=== PATIENT | male | born 1970 | race Two or more races ===

== ENCOUNTER 2024-08-09 14:14 | Inpatient (IN) | payer OTHER ==
[~2024-08-09] VITALS: Ht 167.6 cm; Wt 83.5 kg
--- NOTE | 2024-08-09 14:26 | ED.PDOC ---
HPI Comments This is a 54 year old male presenting to the ED with chief complaint of chest pain. Patient reports that he has been experiencing left sided chest pain since waking up on Tuesday morning, radiating to his neck and back. Patient relays that deep inspirations worsen his pain. Patient states he visited [facility] this afternoon and had labs and an EKG performed, being told that his Troponin is 102. Patient notes he signed out AMA when they advised to call an ambulance for him, stating that he would rather drive himself to the ED. Patient denies any SOB, dizziness, headache, N/V, abdominal pain, numbness, weakness, or syncope. Time Seen by MD: 14:24 Reviewed Notes: Nurses Notes, Medications, Allergies Allergies: Coded Allergies: NO KNOWN ALLERGIES (Unverified , 08/09/24) Information Source: Patient Mode of Arrival: Ambulatory Severity: Moderate Timing: Days Duration: Since onset Prehospital treatment: 12 Lead EKG Location: Chest (L) Radiation: Back, Neck Quality: Aching Onset: At Rest Cardiac Risk Factors: None PE Risk Factors: None Past Medical History PAST MEDICAL HISTORY: Denies Surgical History: Denies all surgeries Family History Family History: Reviewed,noncontributory to illness Social History Smoker: Non-Smoker Alcohol: Denies ETOH Use Drugs: Denies Drug Use Lives In: Home Constitutional: denies: chills, diaphoresis, fatigue, fever, malaise, sweats, weakness, others EENTM: denies: blurred vision, double vision, ear bleeding, ear discharge, ear drainage, ear pain, ear ringing, eye pain, eye redness, hearing loss, mouth pain, mouth swelling, nasal discharge, nose bleeding, nose congestion, nose pain, photophobia, tearing, throat pain, throat swelling, voice changes, others Respiratory: denies: cough, hemoptysis, orthopnea, SOB at rest, shortness of breath, SOB with excertion, stridor, wheezing, others Cardiovascular: denies: chest pain, dizzy spells, diaphoresis, Dyspnea on ex ertion, edema, irregular heart beat, left arm pain, lightheadedness, palpitations, PND, syncope, others Gastrointestinal: denies: abdomen distended, abdominal pain, blood streaked bowels, constipated, diarrhea, dysphagia, difficulty swallowing, hematemesis, melena, nausea, poor appetite, poor fluid intake, rectal bleeding, rectal pain, vomiting, others Genitourinary: denies: burning, dysuria, flank pain, frequency, hematuria, incontinence, penile discharge, penile sore, pain, testicle pain, testicle swelling, urgency, others Neurological: denies: dizziness, fainting, headache, left sided numbness, left sided weakness, numbness, paresthesia, pre-existing deficit, right sided numbness, right sided weakness, seizure, speech problems, tingling, tremors, weakness, others Musculoskeletal: denies: back pain, gout, joint pain, joint swelling, muscle pain, muscle stiffness, neck pain, others Integumetry: denies: bruises, change in color, change in hair/nails, dryness, laceration, lesions, lumps, rash, wounds, others Allergic/Immunocompromised: denies: Difficulty Healing, Frequent Infections, Hives, Itching, others Hematologic/Lymphatic: denies: anemia, blood clots, easy bleeding, easy bruising, swollen glands, others Endocrine: denies: excessive hunger, excessive sweating, excessive thirst, excessive urination, flushing, intolerance to cold, intolerance to heat, unexplained weight gain, unexplained weight loss, others Psychiatric: denies: anxiety, bipolar disorder, depression, hopeless, panic disorder, schizophrenia, sleepless, suicidal, others All Other Systems: Reviewed and Negative Physical Exam General Appearance: No Apparent Distress, Normal HEENT: Normal ENT Inspection, Pharynx Normal, TMs Normal Neck: Full Range of Motion, Non-Tender, Normal, Normal Inspection Respiratory: Chest Non-Tender, Lungs Clear, No Accessory Muscle Use, No Respiratory Distress, Normal Breath Sounds Cardiovascular: No Edema, No JVD, No Murmur, No Gallop, Normal Peripheral Pulses, Regular Rate/Rhythm Breast Exam: Deferred Gastrointestinal: No Organomegaly, Non Tender, No Pulsatile Mass, Normal Bowel Sounds, Soft Genitalia: Deferred Pelvic: Deferred Rectal: Deferred Extremities: No calf tenderness, Normal capillary refill, Normal inspection, Normal range of motion, Non-tender, No pedal edema Musculoskeletal : Apperance: Normal Neurologic: Alert, brusher and shearer II-XII nml as Tested, No Motor Deficits, Normal Affect, Normal Mood, No Sensory Deficits Cerebellar Function: Normal Reflexes: Normal Skin: Dry, Normal Color, Warm Lymphatic: No Adenopathy EKG EKG : Pulse Rate (adult): 94 Gunlock: Normal Cardiac Rhythm: NSR Block: None Hypertrophy: None ST: Normal Was a procedure done? Was a procedure done?: No CP Differential Dx Differential Diagnosis: N/A Differential Diagnosis: N/A Differential Diagnosis: Angina, Aortic dissection, Chest Wall Pain, Cholelithiasis, Costochondritis, Esophageal reflux/spasm, Gastritis, Myocardial Infarction, Pericarditis, Pneumonia, Pneumothorax, Pulmonary Embolus X-Ray, Labs, Meds, VS Vital Signs Date Time Temp Pulse Resp B/P (MAP) Pulse Ox O2 Delivery O2 Flow Rate FiO2 08/09/24 15:19 90 08/09/24 14:42 100.3 96 17 137/87 (104) 96 100.3 08/09/24 14:34 84 20 98 Room Air* 0 21 08/09/24 14:26 94 08/09/24 14:19 94 Lab Test 08/09/24 15:21 08/09/24 14:38 Range/Units Troponin I High Sensitivity 111 *H 109 *H </=54 ng/L White Blood Count 7.5 4.4-10.8 10^3/uL Red Blood Count 5.19 4.5-5.90 10^6/uL Hemoglobin 15.3 13.5-17.5 g/dL Hematocrit 44.7 41.0-53.0 % Mean Corpuscular Volume 86.2 80.0-100.0 fL Mean Corpuscular Hemoglobin 29.5 28.0-32.0 pg Mean Corpuscular Hemoglobin Concent 34.2 32.0-36.0 g/dL Red Cell Distribution Width 13.1 11.8-14.3 % Platelet Count 221 140-450 10^3/uL Mean Platelet Volume 7.7 6.9-10.8 fL Neutrophils (%) (Auto) 69.4 37.0-80.0 % Lymphocytes (%) (Auto) 17.7 10.0-50.0 % Monocytes (%) (Auto) 12.0 0.0-12.0 % Eosinophils (%) (Auto) 0.6 0.0-7.0 % Basophils (%) (Auto) 0.3 0.0-2.0 % Neutrophils # (Auto) 5.2 1.6-8.6 10 ^3/uL Lymphocytes # (Auto) 1.3 0.4-5.4 10 ^3/uL Monocytes # (Auto) 0.9 0-1.3 10 ^3/uL Eosinophils # (Auto) 0 0-0.8 10 ^3/uL Basophils # (Auto) 0 0-0.2 10 ^3/uL Nucleated Red Blood Cells 0.1 % Sodium Level 135 L 136-145 mmol/L Potassium Level 3.9 3.5-5.1 mmol/L Chloride Level 100 98-107 mmol/L Carbon Dioxide Level 27 20-31 mmol/L Anion Gap 8 5-15 Blood Urea Nitrogen 17 9-23 mg/dL Creatinine 0.81 0.700-1.30 mg/dL Glomerular Filtration Rate Calc 106 >90 mL/min BUN/Creatinine Ratio 21.0 H 10.0-20.0 Serum Glucose 105 74-106 mg/dL Calcium Level 9.3 8.7-10.4 mg/dL Current Medications Medications (Trade) Dose Ordered Sig/Shemar Route Start Time Stop Time Status Last Admin Aspirin 325 mg ONCE ONCE PO 08/09/24 14:30 08/09/24 14:31 DC 08/09/24 14:33 Chest XR: FINDINGS: Lines and Tubes: None Lungs: No focal consolidation. Pleura: No effusion. No pneumothorax. Cardiomediastinal contours: Unremarkable Bones: No acute osseous abnormality. IMPRESSION: No acute cardiopulmonary disease. Images Reviewed?: Images reviewed and evaluated by me Time of 1ST Reevaluation: 15:23 Reevaluation 1ST: Unchanged Time of 2ND Reevaluation: 15:47 Reevaluation 2ND: Improved Patient Education/Counseling: Diagnosis, Treatment, Prognosis, Need For Follow Up Family Education/Counseling: No Family Present Comments pt has angina. he does not have PE risk factors nor hardy any findings tro suggest aortic dissection. he has NSTEMI, and is unstable to be transferred. we will contact [place] for authorization for admission Dr Barrientos authorized admission here #[id number] Additional Information Reviewed patient's previous visit(s): None The following tests were ordered, and results were reviewed by me: Chest XR, CBC, BMP, Troponin, EKG Additional information was gathered from interviewing the following independent historian: None I reviewed and agreed with the following test results read by other provider: Chest XR I discussed treatments and results with medical personnel and: Patient Comprehensive systems review obtained and negative except for what is stated in the HPI. SEPSIS Sepsis Screen Physician Orders Continuous Ekg Monitoring 08,12,16,20,00,04 (08/09/24 14:24) Electrocardigram (08/09/24 14:24) Chest Portable (08/09/24 14:24) Troponin-I Hs (08/09/24 17:24) Electrocardigram (08/09/24 15:24) Electrocardigram (08/09/24 17:24) Vital Signs Date Time Temp Pulse Resp B/P (MAP) Pulse Ox O2 Delivery O2 Flow Rate FiO2 08/09/24 15:19 90 08/09/24 14:42 100.3 96 17 137/87 (104) 96 100.3 08/09/24 14:34 84 20 98 Room Air* 0 21 08/09/24 14:26 94 08/09/24 14:19 94 Laboratory Tests Test 08/09/24 14:38 White Blood Count 7.5 10^3/uL (4.4-10.8) Medications Medications Dose Ordered Sig/Shemar Route Start Time Stop Time Status Last Admin Dose Admin Aspirin 325 mg ONCE ONCE PO 08/09/24 14:30 08/09/24 14:31 DC 08/09/24 14:33 Departure 1 Departure Time of Disposition: 15:48 Impression: Primary Impression: NSTEMI (non-ST elevated myocardial infarction) Disposition: 09 ADMITTED INPATIENT Admit to: ICU Condition: Serious Discharged With: Self Critical Care Note Critical Care Time?: Yes (55 min-critical care time only) Critical care comment: due to concerns for patient's condition deteriorating, the care required my highest level of attention and readiness to intervene. i assessed the patient's condition, ordered the proper tests and treatments, reassessed for response and reviewed the results. i communicated with medical personnel and formulated a plan of care. total critical care time does not include any procedures Stability Stability form required: No Heart Score Heart Score: Heart Score Response (Comments) Value History Highly Suspicious 2 EKG Normal 0 Age >65 2 Risk Factors 1 or 2 risk factors 1 Troponin >3 x's Normal limit 2 Total 7 I personally scribed for KATHY LEE MD ([email or web address]) on 08/09/24 at 14:26. Electronically submitted by Steven Diaz ([email or web address]). I personally scribed for KATHY LEE MD ([email or web address]) on 08/09/24 at 15:39. Electronically submitted by Steven Diaz ([email or web address]). I personally scribed for [facility]EE [email or web address] on 08/09/24 at 15:52. Electronically submitted by Steven Diaz ([email or web address]). KATHY LEE MD Aug 09, 2024 14:26
[2024-08-09 14:34] VITALS: PULSE 84; RESP 20; O2SAT 98
--- NOTE | 2024-08-09 14:57 | DVH ---
EXAM: XY CHEST PORTABLE Indication: cp Technique: Single frontal view of the chest was obtained Comparison: None FINDINGS: Lines and Tubes: None Lungs: No focal consolidation. Pleura: No effusion. No pneumothorax. Cardiomediastinal contours: Unremarkable Bones: No acute osseous abnormality. IMPRESSION: No acute cardiopulmonary disease.
[2024-08-09 15:03] LABS: Hematocrit 44.7 % (41.0-53.0); Hemoglobin 15.3 g/dL (13.5-17.5); Mean Corpuscular Hemoglobin 29.5 pg (28.0-32.0); Mean Corpuscular Volume 86.2 fL (80.0-100.0); Nucleated Red Blood Cells % 0.1 %
[2024-08-09 15:13] LABS: Chloride 100 mmol/L (98-107); Potassium 3.9 mmol/L (3.5-5.1)
[2024-08-09 15:14] LABS: Anion Gap 8 (5-15); Calcium 9.3 mg/dL (8.7-10.4); Carbon Dioxide 27 mmol/L (20-31)
[2024-08-09 15:19] LABS: BUN/Creatinine Ratio 21.0 (10.0-20.0); Blood Urea Nitrogen 17 mg/dL (9-23); Glucose 105 mg/dL (74-106)
[2024-08-09 15:24] LABS: Sodium 135 mmol/L (136-145)
[2024-08-09] MEDS ORDERED: HEPARIN SODIUM (PORCINE) 5000 UNITS/ML 1ML VIAL IV ONE ×2 (16:00→16:30)
[2024-08-09] MEDS ORDERED: HEPARIN DRIP/D5W 100UNITS/ML 250 ML IV SCH (16:15)
[2024-08-09 16:22] VITALS: PULSE 80; RESP 12; O2SAT 96
[2024-08-09] MEDS ORDERED: ONDANSETRON HCL 4 MG/2 ML VIAL IV PRN (16:30)
[2024-08-09] MEDS ORDERED: NITROGLYCERIN 0.4 MG SL TAB SL PRN (16:30)
[2024-08-09] MEDS ORDERED: MORPHINE SULFATE INJ 2 MG/ml SYRG IV PRN (16:30)
[2024-08-09 16:47] LABS: INR 1.07 (0.9-1.15); Partial Thromboplastin Time 28.4 SEC (24.5-34.5); Prothrombin Time 11.3 sec (9.3-11.8)
--- NOTE | 2024-08-09 17:10 | CONS ---
Pharmacy Clinical Information: BOLUS 4000 UNITS HEPARIN IV, THEN INITIATE HEPARIN DRIP AT RATE 1000 UNITS/HR (ACS PROTOCOL WITH PATIENT WEIGHT 83.5KG) APTT DRAW SCHEDULED FOR 2300 PER RX PROTOCOL SALMA BOTELLO PHARMACIST Aug 09, 2024 17:10
[2024-08-09] MEDS: ACETAMINOPHEN 325 MG TAB PO ONE (17:33)
--- NOTE | 2024-08-09 17:42 | DVHHP2 ---
History of Present Illness Reason for Visit: Chest pain History of Present Illness 54-year-old male presents for evaluation of chest pain. Patient reports left- sided intermittent chest pain for the past four days. Denies shortness or breath or nausea. Patient did report using heroin on Tuesday. Denies any other acute complaints at the moment. Past Medical History Denies Past Surgical History Denies Family History Noncontributory Smoke: No ALCOHOL: occassional Drugs: Heroin Review of Systems Review of Systems Review of systems are currently negative otherwise addressed in HPI. Allergies: Coded Allergies: NO KNOWN ALLERGIES (Unverified , 08/09/24) Medications Current Medications Medications Dose Ordered Sig/Shemar Route Start Time Stop Time Status Last Admin Dose Admin Heparin Sodium/ Dextrose 250 ml @ 10 mls/hr Q24H IV 08/09/24 16:15 Aspirin 162 mg DAILY PO 08/10/24 10:00 Atorvastatin Calcium 10 mg HS PO 08/09/24 22:00 Ondansetron HCl 4 mg Q4HP PRN IV 08/09/24 16:30 Nitroglycerin 0.4 mg Q5MINP PRN SL 08/09/24 16:30 Morphine Sulfate 2 mg Q30M PRN IV 08/09/24 16:30 Exam Vital Signs Vital Signs Date Time Temp Pulse Resp B/P (MAP) Pulse Ox O2 Delivery O2 Flow Rate FiO2 08/09/24 17:33 100.4 08/09/24 16:22 80 12 126/87 (100) 96 08/09/24 16:22 Room Air* 0 21 Exam Gen: 54-year-old male in no apparent distress. Skin: Warm, dry, normal color and texture, no rash. HEENT: Normocephalic atraumatic, mucous membranes moist and pink. Neck: Cervical and supraclavicular nodes normal without enlargement, trachea is midline, thyroid gland is normal without masses. Pulmonary: Clear to auscultation and percussion bilaterally. Cardiac: Regular rate and rhythm. No murmur Abdomen: Soft, nontender, nondistended, bowel sounds present all 4 quadrants, no guarding, no rigidity, no organomegaly. Extremities: No cyanosis, clubbing, no edema Neuro: Cranial nerves II through XII grossly intact, normal affect and speech, no focal motor deficits. Labs/Xrays ORDERING PHYSICIAN: KATHY LEE MD PROCEDURE(s): CXRP - CHEST PORTABLE REASON: cp ORDER NUMBER(s): [id number], ACCESSION NUMBER(s): [id number] EXAM: XY CHEST PORTABLE Indication: cp Technique: Single frontal view of the chest was obtained Comparison: None FINDINGS: Lines and Tubes: None Lungs: No focal consolidation. Pleura: No effusion. No pneumothorax. Cardiomediastinal contours: Unremarkable Bones: No acute osseous abnormality. IMPRESSION: No acute cardiopulmonary disease. Labs Test 08/09/24 15:21 08/09/24 14:38 Range/Units Troponin I High Sensitivity 111 *H </=54 ng/L White Blood Count 7.5 4.4-10.8 10^3/uL Red Blood Count 5.19 4.5-5.90 10^6/uL Hemoglobin 15.3 13.5-17.5 g/dL Hematocrit 44.7 41.0-53.0 % Mean Corpuscular Volume 86.2 80.0-100.0 fL Mean Corpuscular Hemoglobin 29.5 28.0-32.0 pg Mean Corpuscular Hemoglobin Concent 34.2 32.0-36.0 g/dL Red Cell Distribution Width 13.1 11.8-14.3 % Platelet Count 221 140-450 10^3/uL Mean Platelet Volume 7.7 6.9-10.8 fL Neutrophils (%) (Auto) 69.4 37.0-80.0 % Lymphocytes (%) (Auto) 17.7 10.0-50.0 % Monocytes (%) (Auto) 12.0 0.0-12.0 % Eosinophils (%) (Auto) 0.6 0.0-7.0 % Basophils (%) (Auto) 0.3 0.0-2.0 % Neutrophils # (Auto) 5.2 1.6-8.6 10 ^3/uL Lymphocytes # (Auto) 1.3 0.4-5.4 10 ^3/uL Monocytes # (Auto) 0.9 0-1.3 10 ^3/uL Eosinophils # (Auto) 0 0-0.8 10 ^3/uL Basophils # (Auto) 0 0-0.2 10 ^3/uL Nucleated Red Blood Cells 0.1 % Prothrombin Time 11.3 9.3-11.8 sec Prothrombin Time INR 1.07 0.9-1.15 Activated Partial Thromboplast Time 28.4 24.5-34.5 SEC Sodium Level 135 L 136-145 mmol/L Potassium Level 3.9 3.5-5.1 mmol/L Chloride Level 100 98-107 mmol/L Carbon Dioxide Level 27 20-31 mmol/L Anion Gap 8 5-15 Blood Urea Nitrogen 17 9-23 mg/dL Creatinine 0.81 0.700-1.30 mg/dL Glomerular Filtration Rate Calc 106 >90 mL/min BUN/Creatinine Ratio 21.0 H 10.0-20.0 Serum Glucose 105 74-106 mg/dL Calcium Level 9.3 8.7-10.4 mg/dL Assessment/Plan Assessment/Plan Assessment Chest pain Elevated troponin Heroin use Plan Admit the patient to telemetry to the hospitalist ACS protocol Echocardiogram pending Continue treatment per orders. Plan discussed with: Patient My Orders Orders - BERNICE DAVIS Procedure Category Date Status Time * Cardiology Consult CONS 08/09/24 Transmitted 16:27 Aspirin Tablet PHA 08/10/24 In Process 10:00 Atorvastatin (Lipitor) PHA 08/09/24 In Process 22:00 Basic Metabolic Panel LAB 08/10/24 Verified 04:00 Admit ADMIT 08/09/24 Transmitted 16:27 Ondansetron Hcl PHA 08/09/24 In Process (Zofran) 16:30 Cardiac DIET 08/09/24 Transmitted Diet-2gna,Lofat,Lochol Dinner Echo 2d Mode Cardiac US 08/09/24 Logged DOP 16:27 Condition: Fair KILLIAN 08/09/24 In Process 16:27 Bedrest With Bathroom KILLIAN 08/09/24 In Process Privileg 16:27 Nitroglycerin PHA 08/09/24 In Process Sublingual (Ntrostat 16:30 Morphine Sulfate PHA 08/09/24 In Process Injection 16:30 Stat Ekg For Chest KILLIAN 08/09/24 In Process Pain 16:27 Notify Of Changes KILLIAN 08/09/24 In Process From Base 16:27 Entry Tech For KILLIAN 08/09/24 In Process 24 Hours 16:27 Emergency Dysrhythmia KILLIAN 08/09/24 In Process Protocol 16:27 Rhythm Strips Once KILLIAN 7/3/25 In Process Every Shift 16:27 Oxygen By Nasal RT 08/09/24 Transmitted Cannula 16:27 Date of Service: Aug 09, 2024 Billing Provider: BERNICE DAVIS Common Visit Codes: [id number] INP/OBS CARE (HIGH) BERNICE DAVIS Aug 09, 2024 17:42
[2024-08-09 18:09] LABS: Triglycerides 124 mg/dL (< 150)
[2024-08-09 18:11] LABS: Cholesterol 165 mg/dL (< 200); HDL Cholesterol 52 mg/dL (40-59)
--- NOTE | 2024-08-09 18:18 | DVHINCON2 ---
Date Seen: Aug 09, 2024 Referring Physician ANIKA Hills Reason for Consultation Chest pain History of Present Illness This is a 54-year-old male patient who presents to the emergency room with chief complaint of chest pain. The patient reports that the pain began approximately four days ago. He describes the pain as unprovoked, intermittent, "soreness like", left-sided and nonradiating. He denies any associated symptoms. He also states he has been experiencing a headache since then as well. He does admit to heroin use that day. He reports he went to urgent care initially and was told to come to the emergency room due to his elevated troponin. Initial twelve lead electrocardiogram reveals normal sinus rhythm with PVCs and artifact. Initial troponin level of 109ng/L. The patient denies any cardiac symptoms at time of assessment. Significant past medical history includes prediabetes, hepatitis-C, heroin use on methadone treatment, and obesity. He denies any significant cardiac family history. Past Medical History Past medical history reviewed. No other significant than mentioned above. Past Surgical History Denies Family History Family history reviewed. Social History Admits to recent heroin use four days ago. Also admits to marijuana use Denies any tobacco use Denies any alcohol use Allergies: Coded Allergies: NO KNOWN ALLERGIES (Unverified , 08/09/24) Home Meds Home medications reviewed. Current Medications Current Medications Medications (Trade) Dose Ordered Sig/Shemar Route PRN Reason Start Time Stop Time Status Last Admin Heparin Sodium/ Dextrose 250 ml @ 10 mls/hr Q24H IV 08/09/24 16:15 Aspirin 162 mg DAILY PO 08/10/24 10:00 Atorvastatin Calcium (Lipitor) 10 mg HS PO 08/09/24 22:00 Ondansetron HCl (Zofran) 4 mg Q4HP PRN IV NAUSEA / VOMITING 08/09/24 16:30 Nitroglycerin (Ntrostat Sublingual) 0.4 mg Q5MINP PRN SL FOR CHEST PAIN 08/09/24 16:30 Morphine Sulfate 2 mg Q30M PRN IV FOR CHEST PAIN 08/09/24 16:30 Review of Systems Constitutional: No symptom reported Ears, Nose, & Throat: No symptom reported Eyes: No symptom reported Neurological: No symptoms reported Pulmonary/Respiratory: No symptoms reported Cardiovascular: Chest pain Gastrointestinal: No symptom reported Genitourinary: No symptom reported Musculoskeletal: No symptom reported Skin: No symptom reported Psychiatric: No symptom reported Endocrine: No symptom reported Hematologic/Lymphatic: No symptom reported Vital Signs Vital Signs Date Time Temp Pulse Resp B/P (MAP) Pulse Ox O2 Delivery O2 Flow Rate FiO2 08/09/24 17:33 100.4 08/09/24 16:22 80 12 126/87 (100) 96 08/09/24 16:22 Room Air* 0 21 Physical Exam General Appearance: Cooperative. Well-developed. Well-nourished. No acute distress. Pulmonary/Respiratory: Clear, bilateral breaths sounds. Cardiovascular/Chest: Regular rate and rhythm. Peripheral Pulses: 2+ Radial (R). 2+ Radial (L). 2+ Pedal (R). 2+ Pedal (L) Abdominal Exam: Normal bowel sounds. Ankle Exam: Negative ankle edema Lower extremities: Negative lower extremity edema Neuro/Mental Status: A/OX4, coherent. Thoughts/Psych: Normal thought pattern. Appropriate mood and affect. Good judgment and insight. Appearance: No acute distress. Skin Exam: Normal inspection. Normal color. Warm and dry. Labs/Diagnostic Data Labs Test 08/09/24 17:40 08/09/24 14:38 Range/Units White Blood Count 7.5 4.4-10.8 10^3/uL Red Blood Count 5.19 4.5-5.90 10^6/uL Hemoglobin 15.3 13.5-17.5 g/dL Hematocrit 44.7 41.0-53.0 % Mean Corpuscular Volume 86.2 80.0-100.0 fL Mean Corpuscular Hemoglobin 29.5 28.0-32.0 pg Mean Corpuscular Hemoglobin Concent 34.2 32.0-36.0 g/dL Red Cell Distribution Width 13.1 11.8-14.3 % Platelet Count 221 140-450 10^3/uL Mean Platelet Volume 7.7 6.9-10.8 fL Neutrophils (%) (Auto) 69.4 37.0-80.0 % Lymphocytes (%) (Auto) 17.7 10.0-50.0 % Monocytes (%) (Auto) 12.0 0.0-12.0 % Eosinophils (%) (Auto) 0.6 0.0-7.0 % Basophils (%) (Auto) 0.3 0.0-2.0 % Neutrophils # (Auto) 5.2 1.6-8.6 10 ^3/uL Lymphocytes # (Auto) 1.3 0.4-5.4 10 ^3/uL Monocytes # (Auto) 0.9 0-1.3 10 ^3/uL Eosinophils # (Auto) 0 0-0.8 10 ^3/uL Basophils # (Auto) 0 0-0.2 10 ^3/uL Nucleated Red Blood Cells 0.1 % Prothrombin Time 11.3 9.3-11.8 sec Prothrombin Time INR 1.07 0.9-1.15 Activated Partial Thromboplast Time 28.4 24.5-34.5 SEC Sodium Level 135 L 136-145 mmol/L Potassium Level 3.9 3.5-5.1 mmol/L Chloride Level 100 98-107 mmol/L Carbon Dioxide Level 27 20-31 mmol/L Anion Gap 8 5-15 Blood Urea Nitrogen 17 9-23 mg/dL Creatinine 0.81 0.700-1.30 mg/dL Glomerular Filtration Rate Calc 106 >90 mL/min BUN/Creatinine Ratio 21.0 H 10.0-20.0 Serum Glucose 105 74-106 mg/dL Calcium Level 9.3 8.7-10.4 mg/dL Assessment NSTEMI, likely type II Rule out structural heart disease Heroin use Hepatitis-C Obesity Plan/Recommendation We will continue with the following plan/recommendations (): Case discussed with . Given the patient's clinical presentation, low ZAFAR (1 point) and HEART scores (2 points), and unremarkable twelve lead electrocardiogram, doubt ACS. Patient educated on importance of abstaining from illicit substances. In the setting of an unremarkable transthoracic echocardiogram, there is no further inpatient cardiac workup indicated at this time. Thank you for allowing us to care for this patient. Please call with any questions or concerns. Critical care time spent: 44 minutes This medical document was created using an electronic medical record system with voice recognition software and computerized dictation system. Although this document has been carefully reviewed, there might still be some phonetic and typographical errors. Occasional wrong-word or ``sound-alike substitutions may have occurred due to the inherent limitations of voice recognition software. These areas are purely typographical due to imperfections of the software programs and do not reflect any compromise in the patient's medical care. Please read the chart carefully and recognize, using context, where these substi tutions have occurred. Plan discussed with: Patient NYHA Physical activity limitations: NA Date of Service: Aug 09, 2024 Billing Provider: DANY ODONNELL Cardiology Common Codes: [id number] INP/OBS CARE (High) Cardiology Consultation Codes: [id number] CONSULT <45MIN DANY ODONNELL Aug 09, 2024 18:18
[2024-08-09 18:47] VITALS: BP 132/86; PULSE 79; RESP 16; TEMP 98.9; O2SAT 96
[2024-08-09 19:46] LABS: Urine Protein, UAD Negative (Negative)
[2024-08-09 19:58] LABS: Cannabinoid Screen, Urine Pos (NEGATIVE)
[2024-08-09 20:00] VITALS: PULSE 86
[2024-08-09 20:00] LABS: Amphetamine Screen, Urine Neg (NEGATIVE); Barbiturate Scree,Urine Neg (NEGATIVE); Benzodiazephine Screen, Urine Neg (NEGATIVE); Cocaine Screen, Urine Neg (NEGATIVE); Opiate Scree,Urine Pos (NEGATIVE); Phencyclidine Screen, Urine Neg (NEGATIVE)
[2024-08-09] MEDS ORDERED: METH-1214 PO (20:03)
[2024-08-09 21:00] VITALS: BP 134/77; PULSE 74; RESP 18; TEMP 98.6; O2SAT 98
[2024-08-09] MEDS: ATORVASTATIN 20 MG TAB PO SCH (21:15)
[2024-08-09 23:50] LABS: INR 1.08 (0.9-1.15); Partial Thromboplastin Time 28.3 SEC (24.5-34.5); Prothrombin Time 11.4 sec (9.3-11.8)
[2024-08-10] VITALS (8 sets, daily range): BP systolic 109–145; BP diastolic 77–95; PULSE 68–107; RESP 16–18; TEMP 97.6–99.8; O2SAT 97–99
[2024-08-10 06:03] LABS: Hematocrit 43.1 % (41.0-53.0); Hemoglobin 15.0 g/dL (13.5-17.5); Mean Corpuscular Hemoglobin 29.7 pg (28.0-32.0); Mean Corpuscular Volume 85.4 fL (80.0-100.0); Nucleated Red Blood Cells % 0.0 %
[2024-08-10 06:06] LABS: Chloride 103 mmol/L (98-107); Potassium 4.2 mmol/L (3.5-5.1); Sodium 136 mmol/L (136-145)
[2024-08-10 06:07] LABS: Anion Gap 9 (5-15); Carbon Dioxide 24 mmol/L (20-31)
[2024-08-10 06:08] LABS: Calcium 9.9 mg/dL (8.7-10.4)
[2024-08-10 06:12] LABS: BUN/Creatinine Ratio 13.9 (10.0-20.0); Blood Urea Nitrogen 11 mg/dL (9-23); Glucose 96 mg/dL (74-106)
[2024-08-10] MEDS ORDERED: METHADONE HCL 10 MG TAB PO ONE (11:15)
[2024-08-10 11:24] LABS: Alanine Aminotransferase 28.0 U/L (7-40); Albumin 4.3 g/dL (3.2-4.8); Alkaline Phosphatase 69.0 U/L (46-116); Total Protein 7.4 g/dL (5.7-8.2)
[2024-08-10 11:25] LABS: Bilirubin, Direct 0.2 mg/dL (<0.3); Bilirubin, Total 0.6 mg/dL (0.2-1.0)
[2024-08-10 11:49] LABS: Free T4 (Free Thyroxine) 1.18 ng/dL (0.89-1.76)
[2024-08-10 11:58] LABS: COVID19 ANTIGEN SOFIA FIA NEGATIVE (NEGATIVE)
--- NOTE | 2024-08-10 12:22 | DVHSR ---
APPROVED REPORT EXAM: Two-dimensional and M-mode echocardiogram with Doppler and color Doppler. Blood Pressure: 115/80 mmHg INDICATION Chest Pain RISK FACTORS Height: 66, Weight: 184 DIMENSIONS LVDd4.7 (3.8-5.7cm)LA (2D)3.5 (1.9-4.0cm)Aortic Root3.9 (2.0-3.7cm) LVDs3.4 (2.5-4.0cm)LA (MM) (1.9-4.0cm)Aortic Cusp Exc2.0 (1.5-2.0cm) EF (%) 55.0 (55-70%)Rt. Atrium3.9 (1.9-4.0cm)Asc. Aorta cm IVSd1.0 (0.7-1.1cm)RV (D) (1.8-2.4cm) PWd1.4 (0.7-1.1cm) Mitral Valve MitralMitral Stenosis E wave0.56m/sMV Mean GR.mmHg A wave0.56m/sMV Peak GR.94mmHg E/A ratio1.02D MVAcm2 DECEL [id number] 1/2 [id number] IVRTmsDop MVA3.15cm2 Aortic Valve Aortic ValveAortic Stenosis V10.97m/Geno Mean GR.4mmHg V21.20m/Geno Peak GR.6mmHg LVOT Diameter2.3 (1.8-2.4cm)Doppler AVA3.36cm2 Pulmonic Valve V20.75m/s Tricuspid Valve TR Velocity1.87m/s [id number] Conclusion lvef 55% normal rv function no severe valve abnormaliteis noted
--- NOTE | 2024-08-10 14:44 | DVHPNRES ---
Progress Note Date Seen: Aug 10, 2024 Resident Creating Document: ARY DIANE RESIDENT Medical Necessity Reason Pt with a Central, PICC or Fol: No Subjective Review of Systems Arun CARMONA a 54-year-old male with remote history of drug abuse presented to the ED with the chief complaints of chest pain which started 4 days ago. Patient initially went to urgent care, they sent him to visit ED. He describes the pain as unprovoked, intermittent, "soreness like", left-sided and nonradiating. He denies any associated symptoms. He also states he has been experiencing a headache since then as well. He does admit to heroin use that day. on my assessment patient denies fever, nausea, vomiting, chest pain, shortness of breath and other associated symptoms at this time. PMH: prediabetes, hepatitis-C, heroin use on methadone treatment, and obesity PSH: Denies Family history: Reviewed, noncontributory Social history: Admits to recent heroin use four days ago. Also admits to marijuana use But denies tobacco and alcohol abuse Allergies: No known allergies Patient seen and examined at the bedside. Currently patient reported improvement in his symptoms since admission, reported no new complaints. Overnight events reviewed. Objective vital signs Vital Sign Date Time Temp Pulse Resp B/P (MAP) Pulse Ox O2 Delivery O2 Flow Rate FiO2 08/10/24 13:00 97.6 72 16 141/86 (104) 98 97.6 08/10/24 08:00 Room Air* 0 21 Total Intake and Output 08/09/24 08/09/24 08/10/24 15:00 23:00 07:00 Intake Total 600 ml Balance 600 ml medications Current Medications Medications Dose Ordered Sig/Shemar Route Start Time Stop Time Status Last Admin Dose Admin Aspirin 162 mg DAILY PO 08/10/24 10:00 08/10/24 08:47 162 MG Atorvastatin Calcium 10 mg HS PO 08/09/24 22:00 08/09/24 21:15 10 MG Ondansetron HCl 4 mg Q4HP PRN IV 08/09/24 16:30 Nitroglycerin 0.4 mg Q5MINP PRN SL 08/09/24 16:30 Morphine Sulfate 2 mg Q30M PRN IV 08/09/24 16:30 Patient Own Medication 26 DAILY PO 7/5/25 10:00 Examination Pt is lying on bed General Appearance: Alert, Oriented X3, Cooperative, Not in acute distress HEENT: Atraumatic, Mucous membranes moist/pink Respiratory: Clear to auscultation, Normal air movement, No added sounds Cardiovascular: Regular rate, Normal S1, Normal S2, No murmurs Abdominal: Active bowel sounds, Soft, no distention, no tenderness Extremities: No edema, Normal pulses, No tenderness/swelling Skin: No Significant rash, except past surgical scars Neuro: Normal speech, sensorimotor deficits none Psych/Mental Status: Mental status NL, Mood NL Nurse was there as cognos developer during examination laboratory and microbiology Laboratory Tests 08/10/24 04:55 Test 08/10/24 04:55 Range/Units Serum Glucose 96 74-106 mg/dL Microbiology Date/Time Source Procedure Growth Status 08/09/24 22:30 Nose MRSA Screen - Final Complete Labs and/or images reviewed: Labs reviewed by me, Image(s) reviewed by me Problem List/Assessment/Plan Problem List/Assessment/Plan # Chest pain likely from NSTEMI, likely type II # Rule out ACS # Heroin use # Rule out structural heart disease # HLD - Troponins x3 mildly elevated around 100 - Reviewed EKG which showed no ST changes - echocardiogram, pending - chest pain protocol ordered - continue aspirin, morphine sulfate, nitroglycerin, ondansetron, Lipitor - cardiology on board - patient was counseled regarding cessation of the polysubstance for more than 17 minutes # Hepatitis-C- resolved # Obesity- counseled regarding lifestyle modifications including diet and exercise # marijuana abuse disorder- counseled regarding cessation for more than 17 minutes GI prophylaxis: Not indicated at this time VTE PPX: SCDs for now Diet: Cardiac diet Goals of care discussed with the patient for more than 27 minutes: Full code status Case discussed with Dr. Correia, patient and nurse. Patient is currently unstable for transfer. Plan discussed with: Patient ARY DIANE RESIDENT Aug 10, 2024 14:44
[2024-08-10] MEDS: METHADONE PO ONE (19:08)
[2024-08-10] MEDS: IBUPROFEN 600 MG TAB PO PRN (21:08)
[2024-08-11 01:00] VITALS: BP 123/84; PULSE 60; RESP 18; TEMP 98.3; O2SAT 97
[2024-08-11 04:52] VITALS: BP 128/88; PULSE 75; RESP 18; TEMP 97.9; O2SAT 98
--- NOTE | 2024-08-11 06:39 | ECG ---
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
--- NOTE | 2024-08-11 06:39 | ECG ---
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
[2024-08-11 08:00] VITALS: PULSE 108
[2024-08-11] MEDS: METHADONE PO SCH (08:51)
[2024-08-11 09:00] VITALS: BP 118/89; PULSE 97; RESP 20; TEMP 97.8; O2SAT 99
[2024-08-11] MEDS ORDERED: METHADONE HCL 10 MG TAB PO SCH (10:00)
[2024-08-11 14:12] VITALS: BP 115/79; PULSE 87; RESP 20; TEMP 98.7; O2SAT 97
--- NOTE | 2024-08-11 14:49 | DVHDSRES ---
Discharge Summary Date of Admission Resident Creating Document: UDAY WANG Aug 09, 2024 at 16:27 Date of Discharge: Aug 11, 2024 Labs/Diagnostic Data: Laboratory Results Test 08/10/24 11:15 08/10/24 11:00 08/10/24 04:55 08/09/24 23:25 Influenza Type A Antigen Negative (Negative) Influenza Type B Antigen Negative (Negative) SARS-CoV-2 Antigen (Rapid) Negative (NEGATIVE) Lactic Acid Level 1.1 mmol/L (0.4-2.0) White Blood Count 7.2 10^3/uL (4.4-10.8) Red Blood Count 5.04 10^6/uL (4.5-5.90) Hemoglobin 15.0 g/dL (13.5-17.5) Hematocrit 43.1 % (41.0-53.0) Mean Corpuscular Volume 85.4 fL (80.0-100.0) Mean Corpuscular Hemoglobin 29.7 pg (28.0-32.0) Mean Corpuscular Hemoglobin Concent 34.7 g/dL (32.0-36.0) Red Cell Distribution Width 13.2 % (11.8-14.3) Platelet Count 224 10^3/uL (140-450) Mean Platelet Volume 8.0 fL (6.9-10.8) Neutrophils (%) (Auto) 69.0 % (37.0-80.0) Lymphocytes (%) (Auto) 16.2 % (10.0-50.0) Monocytes (%) (Auto) 13.1 % (0.0-12.0) Eosinophils (%) (Auto) 1.4 % (0.0-7.0) Basophils (%) (Auto) 0.3 % (0.0-2.0) Neutrophils # (Auto) 5.0 10 ^3/uL (1.6-8.6) Lymphocytes # (Auto) 1.2 10 ^3/uL (0.4-5.4) Monocytes # (Auto) 0.9 10 ^3/uL (0-1.3) Eosinophils # (Auto) 0.1 10 ^3/uL (0-0.8) Basophils # (Auto) 0 10 ^3/uL (0-0.2) Nucleated Red Blood Cells 0.0 % Sodium Level 136 mmol/L (136-145) Potassium Level 4.2 mmol/L (3.5-5.1) Chloride Level 103 mmol/L (98-107) Carbon Dioxide Level 24 mmol/L (20-31) Anion Gap 9 (5-15) Blood Urea Nitrogen 11 mg/dL (9-23) Creatinine 0.79 mg/dL (0.700-1.30) Glomerular Filtration Rate Calc 107 mL/min (>90) BUN/Creatinine Ratio 13.9 (10.0-20.0) Serum Glucose 96 mg/dL (74-106) Calcium Level 9.9 mg/dL (8.7-10.4) Total Bilirubin 0.6 mg/dL (0.2-1.0) Direct Bilirubin 0.2 mg/dL (<0.3) Aspartate Amino Transferase (AST) 33 U/L (13-40) Alanine Aminotransferase (ALT) 28 U/L (7-40) Alkaline Phosphatase 69 U/L (46-116) Total Protein 7.4 g/dL (5.7-8.2) Albumin 4.3 g/dL (3.2-4.8) Free Thyroxine (T4) Calculated 1.18 ng/dL (0.89-1.76) Total Triiodothyronine (TT3) 0.97 ng/mL (0.60-1.81) Prothrombin Time 11.4 sec (9.3-11.8) Prothrombin Time INR 1.08 (0.9-1.15) Activated Partial Thromboplast Time 28.3 SEC (24.5-34.5) Test 08/09/24 17:40 08/09/24 16:30 08/09/24 14:38 Troponin I High Sensitivity 78 ng/L (</=54) Urine Color Yellow (Yellow) Urine Clarity Clear (Clear) Urine pH 5.5 (5.0-9.0) Urine Specific [place] 1.020 (1.001-1.035) Urine Protein Negative (Negative) Urine Ketones Negative (Negative) Urine Blood 2+ /uL (Negative) Urine Nitrite Negative (Negative) Urine Bilirubin Negative (Negative) Urine Urobilinogen Normal mg/dL (Negative) Urine Leukocyte Esterase Negative /uL (Negative) Urine RBC 1 /hpf (0 - 3) Urine Microscopic WBC 1 /HPF (0-3) Urine Squamous Epithelial Cells None seen /hpf (<5) Urine Bacteria None seen /hpf (None Seen) Urine Mucus Few (None Seen) Urine Glucose Normal mg/dL (Normal) Urine Opiates Screen Pos (NEGATIVE) Urine Fentanyl Screen Neg (NEGATIVE) Urine Barbiturates Screen Neg (NEGATIVE) Urine Phencyclidine Screen Neg (NEGATIVE) Urine Amphetamines Screen Neg (NEGATIVE) Urine Benzodiazepines Screen Neg (NEGATIVE) Urine Cocaine Screen Neg (NEGATIVE) Urine Cannabinoids Screen Pos (NEGATIVE) Triglycerides Level 124 mg/dL (< 150) Cholesterol Level 165 mg/dL (< 200) LDL Cholesterol 103 mg/dL (< 100) HDL Cholesterol 52 mg/dL (40-59) Thyroid Stimulating Hormone (TSH) 0.37 uIU/mL (0.55-4.78) Other Laboratory Tests 08/10/24 04:55 Brief Hx & Hospital Course: Leopoldo Wolff a 54-year-old male with a history of polysubstance abuse (heroin,marijuana) presented to the ED with complaints of 4 days of chest pain described as left-sided, intermittent, soreness like in nature, nonradiating not associated with other symptoms. EKG ,chest x-ray did not reveal any abnormality lactic acid was normal. Troponins were elevated in the 100s. Patient was managed with chest pain protocol with aspirin, morphine sulfate, nitroglycerin, and incision, statin. Cardiology was consulted. Given the patient's clinical presentation, low ZAFAR (1 point) and HEART scores (2 points), and unremarkable twelve lead electrocardiogram, unlikely ACS. Patient educated on importance of abstaining from illicit substances. In the setting of an unremarkable transthoracic echocardiogram, there is no further inpatient cardiac workup indicated. Sertraline was discussed with the patient and patient agreed. Condition at Discharge: Stable Final Diagnosis/Problems List Chest pain ruled out ACS NSTEMI type 2 most likely due to heroin and other illicit substance abuse Hepatitis C resolved Discharge Disposition: Home Discharge Instruct/Medications Diet: Consistent carbohydrate, Cardiac 2g Na,low cholest Activity: No Restrictions, As Tolerated Follow Up/Referral: Follow-up outpatient with PCP in a week Scheduled Methadone Hcl (Methadone Hcl Tablet), 26 MG PO DAILY, (Reported) Discharge Statement: "Patient was advised to return to the ER or call 911 if any headaches, dizziness, shortness of breath, chest pain, abdominal pain, bleeding, fevers, or worsening of medical condition. Patient was counseled about treatment plan, medications, possible side effects, patientverbalized understanding. All questions were answered to the best of my ability. This discharge took greater then 30 minutes in planning, reviewing documentation, counseling the patient, and discussing with other team members." ASSESSMENT ASSESSMENT Assessment NSTEMI UDAY WANG RESIDENT Aug 11, 2024 14:48
== END 2024-08-11 14:52 | disposition home or self-care (01) | DRG 282 ==
LOC: ER 14:14 → OVERFLOW 16:27 → TELE-WESTW 18:21
PROVIDERS: ADMIT Nurse Practitioner; ATTEND Nurse Practitioner
DX: R07.89 Other chest pain (principal); I21.A1 Myocardial infarction type 2; B19.20 Unspecified viral hepatitis C without hepatic coma; F12.10 Cannabis abuse, uncomplicated; E66.9 Obesity, unspecified; T50.995A Adverse effect of other drugs, medicaments and biological substances, initial encounter; Z68.29 Body mass index [BMI] 29.0-29.9, adult; E78.5 Hyperlipidemia, unspecified; F11.90 Opioid use, unspecified, uncomplicated; Z20.822 Contact with and (suspected) exposure to COVID-19; I49.3 Ventricular premature depolarization; R73.03 Prediabetes; Y92.89 Other specified places as the place of occurrence of the external cause
CPT/HCPCS: 36415; 71045; 80048; 80061; 80076; 80307; 81001; 83605; 84439; 84443; 84480; 84484; 85025; 85610; 85730; 87081; 87426; 87804; 93005; 93306; 99291; G0378